=== PATIENT | female | born 1985 | race Caucasian/White ===

== ENCOUNTER 2017-07-28 22:21 | Emergency (ER) | payer MEDICAID ==
[2017-07-29] MEDS: IBUPROFEN 600 MG TAB PO (00:19)
[2017-07-29 00:23] LABS: URINE BLOOD (Dip) POC Trace-intact (NEGATIVE); URINE GLUCOSE (Dip) POC Negative (NEGATIVE); URINE KETONES (Dip) POC Trace (NEGATIVE); URINE LEUKOCYTE EST (Dip) POC Negative (NEGATIVE); URINE NITRITE (Dip) POC Negative (NEGATIVE); URINE TOTAL PROTEIN POC Negative (NEGATIVE)
== END 2017-07-29 02:09 | disposition home or self-care (01) ==
LOC: FTE 22:21
DX: R10.2 Pelvic and perineal pain (principal)
CPT/HCPCS: 76830; 76856; 81003; 81025; 99284-25

== ENCOUNTER 2017-12-24 23:31 | Emergency (ER) | payer MEDICAID ==
[2017-12-25] MEDS: IBUPROFEN 600 MG TAB PO (00:05)
== END 2017-12-25 02:11 | disposition home or self-care (01) ==
LOC: FTE 12-25 02:11
DX: M53.3 Sacrococcygeal disorders, not elsewhere classified (principal); Z86.018 Personal history of other benign neoplasm
CPT/HCPCS: 72220; 81025; 99283-25